=== PATIENT | female | born 1975 | race Caucasian/White ===

== ENCOUNTER 2017-01-14 23:09 | Emergency (ER) | payer MEDICARE, MEDICAID ==
[~2017-01-14] VITALS: Ht 175.3 cm; Wt 78.0 kg
[~2017-01-14 23:09] MED LIST: ARIP1TAB87 PO; GLUCTAB PO; METH2.5 IM; PREV30CA36 PO; TRAM50 PO
[2017-01-14 23:13] VITALS: BP 137/64; PULSE 92; RESP 16; TEMP 98.1; O2SAT 100
[2017-01-15] MEDS ORDERED: SODIUM CHLOR 0.9% 1000 ML INJ 1,000 ML IV ONE
[2017-01-15 00:08] VITALS: O2SAT 98
[2017-01-15 00:14] LABS: AUTOMATED NEUTROPHIL # 6.1 TH/MM3 (1.8-7.7); BASOPHIL # 0.1 TH/MM3 (0-0.2); BASOPHIL % 0.7 % (0.0-2.0); EOSINOPHIL # 0.5 TH/MM3 (0-0.4); EOSINOPHIL % 5.4 % (0.0-4.0); HEMATOCRIT 37.1 % (35.0-46.0); HEMO FLAGS DIFF FINAL; LYMPH % 20.3 % (9.0-44.0); LYMPHOCYTE # 1.9 TH/MM3 (1.0-4.8); MEAN CELL VOLUME 79.5 FL (80.0-100.0); MEAN CORPUSCULAR HEMOGLOBIN 26.4 PG (27.0-34.0); MEAN CORPUSCULAR HGB CONC 33.3 % (32.0-36.0); MONO % 6.5 % (0.0-8.0); NEUT % 67.1 % (16.0-70.0); PLATELET COUNT 403 TH/MM3 (150-450); RED BLOOD COUNT 4.66 MIL/MM3 (4.00-5.30); RED CELL DISTRIBUTION WIDTH 13.4 % (11.6-17.2); WHITE BLOOD COUNT 9.1 TH/MM3 (4.0-11.0)
[2017-01-15 00:29] LABS: AMPHETAMINE, URINE NEG (NEG); BACTERIA, URINE RARE /hpf; BARBITURATES, URINE NEG (NEG); BLOOD, URINE TRACE (NEG); COCAINE, URINE NEG (NEG); COMMENT (UR) CULTURE INDICATED; CULTURE IF INDICATED CULTURE INDICATED; GLUCOSE,URINE NEG (NEG); HYALINE CAST, URINE 1 /lpf (RARE); KETONE, URINE NEG (NEG); MUCUS URINE MOD /lpf (OCC); NITRITE,URINE NEG (NEG); PH, URINE 5.5 (5.0-8.5); SQUAMOUS EPITHELIAL CELL URINE 26 /hpf (0-5); URINE COLOR YELLOW (YELLW/STRAW)
[2017-01-15 00:33] LABS: ACETAMINOPHEN LESS THAN 2.0 MCG/ML (10.0-30.0); ALKALINE PHOSPHATASE 49 U/L (45-117); TOTAL BILIRUBIN ADULT 0.3 MG/DL (0.2-1.0)
[2017-01-15 00:35] LABS: ALT (GPT) 19 U/L (10-53); ANION GAP 6 MEQ/L (5-15); AST (GOT) 22 U/L (15-37); BLOOD UREA NITROGEN 19 MG/DL (7-18); CHLORIDE 106 MEQ/L (98-107); GLOMERULAR FILTRATION RATE 105 ML/MIN (>89); SODIUM (NA) 139 MEQ/L (136-145)
--- NOTE | 2017-01-15 00:35 | PD ---
HPI Chief Complaint: OD/ Ingestion Time Seen by Provider: 23:27 Travel History International Travel<30 days: No Contact w/Intl Traveler<30days: No Traveled to known affect area: No History of Present Illness HPI The patient is a 41 year old female who presents to the [facility] emergency department with a history of reportedly having a long-standing history of insomnia. The patient reports that this evening she was having difficulty sleeping. She reports that she took 1 Ambien and then continued to have difficulty falling asleep and took 2 additional, however again she was unable to fall asleep, therefore approximately 30 minutes later she took another 2 tablets. Her significant other became concerned when she seemed to be altered. She told him that she took 5 Ambien and he then decided to bring her to the emergency department for evaluation. The patient denies any thoughts of harming herself. She does report having a history of depression, however she has been taking her Abilify for this. She denies any suicidal ideations or homicidal ideations. I asked her significant other at the bedside if she had been expressing any thoughts of harming herself and he denies this. A review of systems, the patient denies any recent fevers, cough, congestion, neck pain, chest pain, shortness of breath, vomiting, diarrhea, urinary symptoms , or neurologic symptoms. She does report having some lower abdominal pain, however she reports that this is related to her history of ovarian cysts. This is unchanged compared to previously. PFSH Past Medical History Narrative Medical The patient's past medical history is significant for depression, rheumatoid arthritis, fibromyalgia, diabetes mellitus, plantar fasciitis, chronic back pain , ovarian cysts. Hx Anticoagulant Therapy: No Bipolar Disorder: Yes Depression: Yes Cardiovascular Problems: No Chemotherapy: No Cerebrovascular Accident: No Diabetes: Yes Patient Takes Glucophage: Yes Respiratory: No ?: Not Tubal Ligation: Yes Past Surgical History Narrative Surgical The patient's past surgical history is significant for cholecystectomy. Cholecystectomy: Yes Hysterectomy: No Social History Alcohol Use: No Tobacco Use: No Substance Use: No Allergies-Medications (Allergen,Severity, Reaction): Coded Allergies: Latex (Verified Allergy, Severe, 06/01/15) Reported Meds & Prescriptions Reported Meds & Active Scripts Active Ultram (Tramadol HCl) 50 Mg Tab 1-2 Tab PO Q6H PRN FOR PAIN Prevacid (Lansoprazole) 30 Mg Capcr 30 Mg PO DAILY Reported Methotrexate (Methotrexate Sodium) 2.5 Mg Tab 2.5 Mg IM WEEKLY Abilify 15 Mg Tab (Aripiprazole) 15 Mg Tab 15 Mg PO DAILY Metformin Hcl Er (Metformin HCl) 500 Mg Tab 1,000 Mg PO BID Review of Systems Except as stated in HPI: all other systems reviewed are Neg General / Constitutional: No: Fever Eyes: No: Visual changes HENT: No: Headaches Cardiovascular: No: Chest Pain or Discomfort Respiratory: No: Shortness of Breath Gastrointestinal: No: Abdominal Pain Genitourinary: No: Dysuria Musculoskeletal: No: Pain Skin: No Rash Neurologic: Positive: Weakness (generalized weakness, fatigue), No: Focal Abnormalities, Coordination Problem, Change in Mentation, Slurred Speech, Sensory Disturbance Psychiatric: Positive: Depression, Mood Disorder, No: Anxiety, Suicidal Ideations, Disorder of Thought, Substance Abuse, Homicidal Ideation Endocrine: No: Polydipsia Hematologic/Lymphatic: No: Easy Bruising Physical Exam Narrative General: The patient is well-developed well-nourished female in no acute distress. Head and Neck exam: Head is normocephalic atraumatic. Eyes: EOMI, pupils are equal round and reactive to light. Nose: Midline septum with pink mucous membranes Mouth: Dentition unremarkable. Moist mucus membranes. Posterior oropharynx is not erythematous. No tonsillar hypertrophy. Uvula midline. Airway patent. Neck: No palpable lymphadenopathy. No nuchal rigidity. No thyromegaly. Cardiovascular: Regular rate and rhythm without murmurs, gallops, or rubs. Lungs: Clear to auscultation bilaterally. No wheezes, rhonchi, or rales. Abdomen: Soft, without tenderness to palpation in all 4 quadrants of the abdomen. No guarding, rebound, or rigidity. Normal bowel sounds are audible. No tenderness on palpation of McBurney's point. Extremities: No clubbing, cyanosis, or edema. 2+ pulses in all 4 extremities. Back: No spinous process tenderness to palpation. No costovertebral angle tenderness to palpation. Neurologic Exam: Grossly nonfocal. Skin Exam: No rash noted. Intact skin that is warm and dry. Data Data Last Documented VS Vital Signs Date Time Temp Pulse Resp B/P Pulse Ox O2 Delivery O2 Flow Rate FiO2 01/15/17 01:21 97 16 107/68 97 5/14/17 23:13 98.1 Room Air Orders Electrocardiogram (01/14/17 23:47) Complete Blood Count With Diff (01/14/17 23:47) Comprehensive Metabolic Panel (01/14/17:47) Prothrombin Time / Inr (Pt) (01/14/17:47) Act Partial Throm Time (Ptt) (01/14/17:47) Urinalysis - C+S If Indicated (01/14/17:47) Iv Access Insert/Monitor (01/14/17:47) Ecg Monitoring (01/14/17:47) Oximetry (01/14/17:47) Ed Urine Pregnancytest Poc (01/14/17:47) Drug Screen, Random Urine (01/14/17:47) Alcohol (Ethanol) (01/14/17:47) Salicylates (Aspirin) (01/14/17 23:47) Tylenol (Acetaminophen) (01/14/17 23:47) Sodium Chlor 0.9% 1000 Ml Inj (Ns 1000 M (01/15/17 00:00) Urine Culture (01/15/17 00:05) Nitrofurantoin Monohyd Macrocr (Macrobid (01/15/17 01:15) Call Poison Control (01/15/17 01:10) Labs Laboratory Tests Test 01/15/17 00:05 White Blood Count 9.1 TH/MM3 Red Blood Count 4.66 MIL/MM3 Hemoglobin 12.3 GM/DL Hematocrit 37.1 % Mean Corpuscular Volume 79.5 FL Mean Corpuscular Hemoglobin 26.4 PG Mean Corpuscular Hemoglobin 33.3 % Concent Red Cell Distribution Width 13.4 % Platelet Count 403 TH/MM3 Mean Platelet Volume 8.0 FL Neutrophils (%) (Auto) 67.1 % Lymphocytes (%) (Auto) 20.3 % Monocytes (%) (Auto) 6.5 % Eosinophils (%) (Auto) 5.4 % Basophils (%) (Auto) 0.7 % Neutrophils # (Auto) 6.1 TH/MM3 Lymphocytes # (Auto) 1.9 TH/MM3 Monocytes # (Auto) 0.6 TH/MM3 Eosinophils # (Auto) 0.5 TH/MM3 Basophils # (Auto) 0.1 TH/MM3 CBC Comment DIFF FINAL Differential Comment Prothrombin Time 11.0 SEC Prothromb Time International 1.0 RATIO Ratio Activated Partial 26.2 SEC Thromboplast Time Urine Color YELLOW Urine Turbidity HAZY Urine pH 5.5 Urine Specific [place] 1.030 Urine Protein TRACE mg/dL Urine Glucose (UA) NEG mg/dL Urine Ketones NEG mg/dL Urine Occult Blood TRACE Urine Nitrite NEG Urine Bilirubin NEG Urine Urobilinogen 2.0 MG/DL Urine Leukocyte Esterase LARGE Urine RBC 4 /hpf Urine WBC 17 /hpf Urine Squamous Epithelial 26 /hpf Cells Urine Bacteria RARE /hpf Urine Hyaline Casts 1 /lpf Urine Mucus MOD /lpf Microscopic Urinalysis Comment CULTURE INDICATED Sodium Level 139 MEQ/L Potassium Level 4.0 MEQ/L Chloride Level 106 MEQ/L Carbon Dioxide Level 27.0 MEQ/L Anion Gap 6 MEQ/L Blood Urea Nitrogen 19 MG/DL Creatinine 0.63 MG/DL Estimat Glomerular Filtration 105 ML/MIN Rate Random Glucose 136 MG/DL Calcium Level 8.8 MG/DL Total Bilirubin 0.3 MG/DL Aspartate Amino Transf 22 U/L (AST/SGOT) Alanine Aminotransferase 19 U/L (ALT/SGPT) Alkaline Phosphatase 49 U/L Total Protein 6.7 GM/DL Albumin 3.4 GM/DL Salicylates Level LESS THAN 1.7 MG/DL Urine Opiates Screen NEG Acetaminophen Level LESS THAN 2.0 MCG/ML Urine Barbiturates Screen NEG Urine Amphetamines Screen NEG Urine Benzodiazepines Screen NEG Urine Cocaine Screen NEG Urine Cannabinoids Screen NEG Ethyl Alcohol Level LESS THAN 3 MG/DL MDM Medical Decision Making Medical Screen Exam Complete: Yes Emergency Medical Condition: Yes Medical Record Reviewed: Yes Differential Diagnosis Intentional versus unintentional overdose Narrative Course During the course of the patients emergency department visit, the patients history, examination, and differential diagnosis were reviewed with the patient. The patient had IV access obtained and blood work sent for analysis. The patient was placed on a phototypesetting equipment monitor with oximetry and blood pressure monitoring. An EKG was done on arrival. The patient's EKG shows a sinus rhythm heart rate of 77, no acute ST segment elevation or depression, QRS duration is 96 ms, QTC is 416 ms. The patient was initially provided normal saline IV fluids. The patients laboratory studies were reviewed and remarkable for a white count of 9.1, hemoglobin 12.3, platelets 403 with 5.4 eosinophils, CMP is remarkable for a glucose of 136, BUN 19, PT PTT unremarkable. Urine drug screen is negative, salicylate less than 1.7, acetaminophen less than 2, alcohol level less than 3, urinalysis shows trace occult blood, large leukocyte esterase, 4 rbc's, wbc's 17, rare bacteria. Culture indicated. The patient was given Macrobid 1 by mouth 1. Poison control was called by the patient's nurse. The patient's history and laboratory studies as well as EKG were reviewed with poison control. They did not recommend any additional monitoring the patient appears to be well at this time. The patient was encouraged to take medications as prescribed on the bottle. She is instructed to avoid taking extra medication as this can be harmful. The patient will be given a prescription for Macrobid for a urinary tract infection. The patient is resting comfortably and feels better, is alert and in no distress. The patients results and examination findings were discussed with the patient. The repeat examination is unremarkable and benign. The history, exam, diagnostic testing, and current condition do not suggest any significant pathology to warrant further testing, continued ED treatment, admission, or surgical evaluation at this point. The vital signs have been stable. The patient does not have uncontrollable pain, intractable vomiting, or other significant symptoms. The patient's condition is stable and appropriate for discharge. The patient will pursue further outpatient evaluation with a primary care physician or other designated or consulting physician as indicated in the discharge instructions. The patient expressed understanding and was agreeable with this plan. Diagnosis Primary Impression: Insomnia Qualified Code: F51.05 - Insomnia due to other mental disorder Additional Impressions: Accidental overdose Qualified Code: T50.901A - Accidental overdose, initial encounter Cystitis Referrals: Primary Care Physician Psychiatrist Patient Instructions: Adult Overdose (ED), General Instructions, Urinary Tract Infection in Women (ED) Med/Other Pt SpecificInfo: Prescription(s) given Scripts Nitrofurantoin Monohydrate Macrocrystals (Macrobid)100 Mg [id number] Mg PO BID #19 CAP Ref 0 Prov:Dana Laws MD 01/15/17 Disposition: 01 DISCHARGE HOME Condition: Stable Dana Laws MD January 15, 2017 00:35
[2017-01-15 00:51] LABS: APTT (PATIENT) 26.2 SEC (24.3-30.1)
[2017-01-15] MEDS ORDERED: NITROFURANTOIN MONOHYD MACROCR 100 MG CAP PO ONE (01:15)
[2017-01-15 01:21] VITALS: BP 107/68; PULSE 97; RESP 16; O2SAT 97
[2017-01-15] MEDS ORDERED: MACR100C2 PO (02:21)
--- NOTE | 2017-01-15 14:46 | EKG ---
Date Performed: 01/15/2017 Time Performed: 00:22:03 PTAGE: 41 years EKG: Sinus rhythm NORMAL ECG NO PREVIOUS TRACING DOCTOR: Parth Kingsley Interpretating Date/Time 01/15/2017 14:42:12
== END 2017-01-15 02:29 | disposition home or self-care (01) ==
LOC: NEPC 23:09
DX: T42.6X1A Poisoning by other antiepileptic and sedative-hypnotic drugs, accidental (unintentional), initial encounter (principal); G47.00 Insomnia, unspecified; R10.30 Lower abdominal pain, unspecified; E11.9 Type 2 diabetes mellitus without complications; G89.29 Other chronic pain; M79.7 Fibromyalgia
CPT/HCPCS: 80053; 80307; 81001; 84703; 85025; 85610; 85730; 87086; 93005; 96360; 96361; 99284; J7030